=== PATIENT | female | born 1995 | race Caucasian/White ===

== ENCOUNTER 2017-03-15 17:56 | Emergency (ER) | payer SELFPAY ==
[~2017-03-15] VITALS: Ht 157.5 cm; Wt 40.6 kg
[~2017-03-15 17:56] MED LIST: BUSP15TA PO; ESCI10TA10 PO; HYDR-3240 PO; IBUP-1222 PO; POLY17PO5 PO; PREN1TAB52 PO
[2017-03-15 17:59] VITALS: BP 132/87
[2017-03-15 18:58] LABS: HEMATOCRIT 41.9 % (34.6-47.8); HEMOGLOBIN 14.4 g/dL (11.7-16.4); WHITE BLOOD COUNT 10.3 x10^3/uL (3.4-10)
[2017-03-15 19:08] LABS: BLOOD UREA NITROGEN 12 mg/dL (7-18)
[2017-03-15 19:14] LABS: ASPARTATE AMINO TRANSFERASE 17 U/L (15-37)
== END 2017-03-15 20:17 | disposition home or self-care (01) ==
LOC: ED 20:16
DX: N39.0 Urinary tract infection, site not specified (principal)
CPT/HCPCS: 36415; 76830; 80053; 81001; 84703; 85025; 87086; 99285

== ENCOUNTER 2018-02-15 18:22 | Emergency (ER) | payer OTHER ==
[~2018-02-15] VITALS: Ht 157.5 cm; Wt 45.0 kg
[2018-02-15 18:57] LABS: BASOPHILS # (AUTO) 0.04 x10^3/uL (0-0.1); BASOPHILS % (AUTO) 0 % (0-1); EOSINOPHILS # (AUTO) 0.12 x10^3/uL (0-0.4); EOSINOPHILS % (AUTO) 1 % (1-7); LYMPHOCYTES # (AUTO) 2.33 x10^3/uL (1-3.4); LYMPHOCYTES % (AUTO) 27 % (22-44); MD NO; MEAN CORPUSCULAR HEMOGLOBIN 33.4 pg (27.0-34.8); MEAN CORPUSCULAR VOLUME 95.6 fL (80-100); MONOCYTES # (AUTO) 0.51 x10^3/uL (0.2-0.8); MONOCYTES % (AUTO) 6 % (2-9); NEUTROPHILS # (AUTO) 5.77 x10^3/uL (1.8-6.8); NEUTROPHILS % (AUTO) 66 % (42-75); PLATELET COUNT 216 x10^3/uL (130-400); RED BLOOD COUNT 4.01 x10^6/uL (3.82-5.3); RED CELL DISTRIBUTION WIDTH 12.6 % (9.6-15.2)
[2018-02-15 19:06] LABS: ALANINE AMINOTRANSFERASE 21 U/L (12-78); ALBUMIN 3.7 g/dL (3.4-5.0); ANION GAP 8 mmol/L (5-15); CALCIUM 8.4 mg/dL (8.5-10.1); CHLORIDE 107 mmol/L (98-107); CREATININE 0.75 mg/dL (0.55-1.02)
[2018-02-15 19:11] LABS: ALKALINE PHOSPHATASE 69 U/L (45-117); BILIRUBIN,TOTAL 0.5 mg/dL (0.2-1.0); TOTAL PROTEIN 7.6 g/dL (6.4-8.2)
[2018-02-15 19:24] LABS: MICROSCOPIC INDICATED
[2018-02-15 19:25] LABS: CULTURE INDICATED? YES
[2018-02-15 20:52] VITALS: BP 113/39
== END 2018-02-15 21:26 | disposition home or self-care (01) ==
LOC: ED 20:51
DX: N30.00 Acute cystitis without hematuria (principal); R11.2 Nausea with vomiting, unspecified; F17.200 Nicotine dependence, unspecified, uncomplicated
CPT/HCPCS: 36415; 76830; 80053; 81001; 83690; 84703; 85025; 87086; 99285

== ENCOUNTER 2018-04-22 20:38 | Emergency (ER) | payer SELFPAY ==
[~2018-04-22] VITALS: Ht 157.5 cm; Wt 42.3 kg
[2018-04-22] MEDS ORDERED: PRAZ1POW3 PO (21:04)
[2018-04-22] MEDS ORDERED: BUSP5TAB2 PO (21:05)
[2018-04-22] MEDS ORDERED: ONDANSETRON ODT 4 MG ONE (21:17)
[2018-04-22] MEDS ORDERED: ONDANSETRON ODT 4 MG PO ONE (21:30)
[2018-04-22 21:31] LABS: BASOPHILS # (AUTO) 0.04 x10^3/uL (0-0.1); BASOPHILS % (AUTO) 1 % (0-1); EOSINOPHILS # (AUTO) 0.11 x10^3/uL (0-0.4); EOSINOPHILS % (AUTO) 1 % (1-7); LYMPHOCYTES # (AUTO) 2.39 x10^3/uL (1-3.4); LYMPHOCYTES % (AUTO) 30 % (22-44); MD NO; MEAN CORPUSCULAR HEMOGLOBIN 33.3 pg (27.0-34.8); MEAN CORPUSCULAR HGB CONC 34.6 g/dL (32.4-35.8); MEAN CORPUSCULAR VOLUME 96.3 fL (80-100); MEAN PLATELET VOLUME 7.9 fL (7.4-10.4); MONOCYTES # (AUTO) 0.41 x10^3/uL (0.2-0.8); MONOCYTES % (AUTO) 5 % (2-9); NEUTROPHILS # (AUTO) 4.93 x10^3/uL (1.8-6.8); NEUTROPHILS % (AUTO) 63 % (42-75); PLATELET COUNT 211 x10^3/uL (130-400); RED BLOOD COUNT 3.92 x10^6/uL (3.82-5.3); RED CELL DISTRIBUTION WIDTH 12.3 % (9.6-15.2)
[2018-04-22 21:44] LABS: ALANINE AMINOTRANSFERASE 23 U/L (12-78); ALBUMIN 3.8 g/dL (3.4-5.0); ANION GAP 6 mmol/L (5-15); CALCIUM 8.5 mg/dL (8.5-10.1); CHLORIDE 106 mmol/L (98-107); CREATININE 0.64 mg/dL (0.55-1.02)
[2018-04-22 21:46] LABS: ALKALINE PHOSPHATASE 58 U/L (45-117); BILIRUBIN,TOTAL 0.5 mg/dL (0.2-1.0); TOTAL PROTEIN 7.6 g/dL (6.4-8.2)
[2018-04-22 21:51] LABS: HCG UR SG 1.012 (1.003-1.030); MICROSCOPIC NOT IND
[2018-04-22 21:52] LABS: CULTURE INDICATED? NO
[2018-04-22 23:03] VITALS: BP 108/57
== END 2018-04-22 23:13 | disposition home or self-care (01) ==
LOC: ED 21:07
DX: R53.1 Weakness (principal); F41.1 Generalized anxiety disorder; R10.84 Generalized abdominal pain; F31.9 Bipolar disorder, unspecified
CPT/HCPCS: 36415; 80053; 81003; 81025; 83690; 85025; 93005; 99284; Q0162

== ENCOUNTER 2018-08-21 19:45 | Emergency (ER) | payer OTHER ==
[~2018-08-21] VITALS: Ht 160 cm; Wt 43.4 kg
[~2018-08-21 19:45] MED LIST changes: +BUSP5TAB2 PO; +PRAZ1POW3 PO
[2018-08-21 19:54] VITALS: BP 146/84
[2018-08-21 20:42] LABS: MICROSCOPIC NOT IND
[2018-08-21 20:43] LABS: BASOPHILS # (AUTO) 0.05 x10^3/uL (0-0.1); BASOPHILS % (AUTO) 0 % (0-1); EOSINOPHILS # (AUTO) 0.23 x10^3/uL (0-0.4); EOSINOPHILS % (AUTO) 2 % (1-7); LYMPHOCYTES # (AUTO) 2.36 x10^3/uL (1-3.4); LYMPHOCYTES % (AUTO) 22 % (22-44); MD NO; MEAN CORPUSCULAR HGB CONC 34.5 g/dL (32.4-35.8); MEAN CORPUSCULAR VOLUME 95.7 fL (80-100); MEAN PLATELET VOLUME 7.6 fL (7.4-10.4); MONOCYTES # (AUTO) 0.63 x10^3/uL (0.2-0.8); MONOCYTES % (AUTO) 6 % (2-9); NEUTROPHILS % (AUTO) 70 % (42-75); PLATELET COUNT 285 x10^3/uL (130-400); RED BLOOD COUNT 3.73 x10^6/uL (3.82-5.3); RED CELL DISTRIBUTION WIDTH 13.2 % (9.6-15.2)
[2018-08-21 20:46] LABS: CULTURE INDICATED? NO
--- NOTE | 2018-08-21 20:51 | NUR ---
IN XR THEN ROOM
[2018-08-21 20:54] LABS: ALANINE AMINOTRANSFERASE 18 U/L (12-78); ALBUMIN 3.5 g/dL (3.4-5.0); ANION GAP 5 mmol/L (5-15); CALCIUM 8.8 mg/dL (8.5-10.1); CHLORIDE 108 mmol/L (98-107); CREATININE 0.52 mg/dL (0.55-1.02)
[2018-08-21 20:59] LABS: ALKALINE PHOSPHATASE 74 U/L (45-117); BILIRUBIN,TOTAL 0.4 mg/dL (0.2-1.0); TOTAL PROTEIN 7.1 g/dL (6.4-8.2)
== END 2018-08-21 21:56 | disposition home or self-care (01) ==
LOC: ED 21:50
DX: R10.2 Pelvic and perineal pain (principal); F17.200 Nicotine dependence, unspecified, uncomplicated; F31.9 Bipolar disorder, unspecified
CPT/HCPCS: 36415; 76830; 80053; 81003; 84703; 85025; 99284

== ENCOUNTER 2019-11-06 08:50 | Emergency (ER) | payer SELFPAY ==
[~2019-11-06] VITALS: Ht 157.5 cm; Wt 47.4 kg
--- NOTE | 2019-11-06 09:30 | NUR ---
URINE COLLECTED AND SENT TO LAB.
[2019-11-06 09:41] LABS: BASOPHILS # (AUTO) 0.03 x10^3/uL (0-0.1); BASOPHILS % (AUTO) 0 % (0-1); EOSINOPHILS # (AUTO) 0.16 x10^3/uL (0-0.4); EOSINOPHILS % (AUTO) 2 % (1-7); LYMPHOCYTES # (AUTO) 2.16 x10^3/uL (1-3.4); LYMPHOCYTES % (AUTO) 22 % (22-44); MD NO; MEAN CORPUSCULAR HEMOGLOBIN 32.6 pg (27.0-34.8); MEAN CORPUSCULAR HGB CONC 33.8 g/dL (32.4-35.8); MEAN CORPUSCULAR VOLUME 96.3 fL (80-100); MEAN PLATELET VOLUME 7.6 fL (7.4-10.4); MONOCYTES # (AUTO) 0.64 x10^3/uL (0.2-0.8); MONOCYTES % (AUTO) 6 % (2-9); NEUTROPHILS # (AUTO) 7.08 x10^3/uL (1.8-6.8); NEUTROPHILS % (AUTO) 70 % (42-75); PLATELET COUNT 289 x10^3/uL (130-400); RED BLOOD COUNT 4.05 x10^6/uL (3.82-5.3); RED CELL DISTRIBUTION WIDTH 12.3 % (9.6-15.2)
[2019-11-06 09:53] LABS: ALANINE AMINOTRANSFERASE 20 U/L (12-78); ALBUMIN 3.9 g/dL (3.4-5.0); ANION GAP 7 mmol/L (5-15); CALCIUM 9.1 mg/dL (8.5-10.1); CHLORIDE 105 mmol/L (98-107); CREATININE 0.59 mg/dL (0.55-1.02)
[2019-11-06 09:54] LABS: MICROSCOPIC AUTO
[2019-11-06 10:12] LABS: ALKALINE PHOSPHATASE 64 U/L (45-117); BILIRUBIN,TOTAL 0.7 mg/dL (0.2-1.0); TOTAL PROTEIN 7.9 g/dL (6.4-8.2)
[2019-11-06 10:31] VITALS: BP 101/54
[2019-11-06] MEDS ORDERED: PREN1TAB28 PO (10:34)
--- NOTE | 2019-11-06 10:46 | NUR ---
VS UPDATED AND WNL. PBJ MADE AND SERVED TO PATIENT WITH MILK.
--- NOTE | 2019-11-06 11:16 | NUR ---
Patient given discharge instructions and they have confirmed that they understand the instructions. Patient ambulatory with steady gait.
== END 2019-11-06 11:17 | disposition home or self-care (01) ==
LOC: ED 10:54
DX: O20.0 Threatened abortion (principal); Z3A.01 Less than 8 weeks gestation of pregnancy
CPT/HCPCS: 36415; 76801; 80053; 81001; 84702; 85025; 86901; 87086; 99284

== ENCOUNTER 2019-11-08 10:22 | Emergency (ER) | payer OTHER ==
[~2019-11-08] VITALS: Ht 157.5 cm; Wt 47.0 kg
[~2019-11-08 10:22] MED LIST changes: +PREN1TAB28 PO
--- NOTE | 2019-11-08 10:52 | NUR ---
LAB IN ROOM.
--- NOTE | 2019-11-08 10:56 | NUR ---
THIS IS A 24 YO F THAT IS HERE TO "CONFIRM STATUS". PT REPORTS SHE WAS HERE 2 DAYS AGO W/ C/O CRAMPING AND WAS TOLD TO COME BACK AND GET HCG AND POSSIBLE US TODAY. PT DENIES ABD PAIN/VB/N/V. PT RESTING ON GURNEY W/ CALL LIGHT IN REACH AND FAMILY AT BEDSIDE. KAYODE BARILLAS. AWAITING LAB RESULTS.
--- NOTE | 2019-11-08 11:50 | NUR ---
PT TO US.
--- NOTE | 2019-11-08 12:27 | NUR ---
PER PT IS OKAY TO EAT.
[2019-11-08 12:30] VITALS: BP 103/59
--- NOTE | 2019-11-08 12:46 | NUR ---
REGULAR DIET TRAY DELIVERED TO PT.
--- NOTE | 2019-11-08 12:59 | NUR ---
PT RESTING ON GURNEY W/ CALL LIGHT IN REACH AND FAMILY AT BEDSIDE. AWAITING OB CONSULT.
--- NOTE | 2019-11-08 13:33 | NUR ---
Patient given discharge instructions and they have confirmed that they understand the instructions. Patient ambulatory with steady gait.
== END 2019-11-08 13:35 | disposition home or self-care (01) ==
LOC: ED 11:03
DX: O26.91 Pregnancy related conditions, unspecified, first trimester (principal); R10.2 Pelvic and perineal pain; Z3A.01 Less than 8 weeks gestation of pregnancy
CPT/HCPCS: 36415; 76801; 84702; 99284

== ENCOUNTER 2019-11-20 08:00 | Emergency (ER) | payer OTHER ==
[~2019-11-20] VITALS: Ht 157.5 cm; Wt 48.3 kg
--- NOTE | 2019-11-20 08:20 | NUR ---
Pt ambulates with steady gait and balance from triage to room. No acute distress noticed.
[2019-11-20] MEDS ORDERED: Ibuprofen (08:35)
--- NOTE | 2019-11-20 08:35 | NUR ---
Pt resting on gurney connected to NIBP cuff and continous pulse ox monitor. Pt reports history of chronic bowel problems since "potty trained" with constipation and past use of "Denisa every other day for bowel maintenance". Pt reports "normal" bowel movements for two years with current constipation "related to being , I had this in my last ". Pt reports last bowel movement "2 weeks ago" and a 4/10 periumbillical pain. Call light within reach. No needs expressed at this time.
[2019-11-20 09:03] VITALS: BP 109/61
--- NOTE | 2019-11-20 09:17 | NUR ---
Patient given discharge instructions and they have confirmed that they understand the instructions. Patient ambulatory with steady gait. Pt left with Rx, discharge instructions, and all personal belongings.
== END 2019-11-20 09:19 | disposition home or self-care (01) ==
LOC: ED 08:40
DX: K59.00 Constipation, unspecified (principal); Z76.0 Encounter for issue of repeat prescription
CPT/HCPCS: 99281

== ENCOUNTER 2020-05-20 11:49 | Outpatient (CLI) | payer MEDICAID ==
[~2020-05-20 11:49] MED LIST changes: +ACET-1600 PO; +Ibuprofen; +LINA290C PO; +ONDA4TAB7 PO
[2020-05-20 12:47] LABS: MICROSCOPIC INDICATED
[2020-05-20 12:55] LABS: AMPHETAMINE SCREEN, URINE Negative (Negative); BARBITURATE SCREEN, URINE Negative (Negative); BENZODIAZEPINE SCREEN, URINE Negative (Negative); CANNABINOID SCREEN, URINE Negative (Negative); COCAINE SCREEN, URINE Negative (Negative); METHADONE SCREEN, URINE Negative (Negative); OPIATE SCREEN, URINE Negative (Negative)
[2020-05-20] MEDS ORDERED: NITR100C56 PO (13:03)
== END 2020-05-20 13:10 | disposition home or self-care (01) ==
LOC: LDOP 11:49
PROVIDERS: ATTEND Obstetrics & Gynecology
DX: O36.8130 Decreased fetal movements, third trimester, not applicable or unspecified (principal); O46.93 Antepartum hemorrhage, unspecified, third trimester; Z3A.32 32 weeks gestation of pregnancy
CPT/HCPCS: 59025; 80307; 81001; 87086

== ENCOUNTER 2020-06-07 10:58 | Outpatient (CLI) | payer MEDICAID ==
[~2020-06-07] VITALS: Ht 157.5 cm; Wt 68.6 kg
[~2020-06-07 10:58] MED LIST changes: +NITR100C56 PO
[2020-06-07 11:54] VITALS: BP 127/75
[2020-06-07] MEDS ORDERED: [UNRECOGNIZED DRUG - CODE] PO/NG (12:06)
== END 2020-06-07 12:45 | disposition home or self-care (01) ==
LOC: LDOP 10:58
PROVIDERS: ATTEND Obstetrics & Gynecology
DX: O36.8130 Decreased fetal movements, third trimester, not applicable or unspecified (principal); Z3A.35 35 weeks gestation of pregnancy
CPT/HCPCS: 59025

== ENCOUNTER 2020-07-02 04:53 | Inpatient (IN) | payer MEDICAID ==
[~2020-07-02] VITALS: Ht 157.5 cm; Wt 70.0 kg
[~2020-07-02 04:53] MED LIST changes: +HYDR-1067 PO; -HYDR-3240 PO; +[UNRECOGNIZED DRUG - CODE] PO/NG
[2020-07-02] MEDS ORDERED: OXYTOCIN 30U/ 0.9% NaCL 500ML 500 ML ONE (05:10)
[2020-07-02] MEDS ORDERED: LIDOCAINE 1%, 20ML ONE (05:10)
[2020-07-02] MEDS ORDERED: NEWBORN KIT ONE (05:10)
[2020-07-02] MEDS ORDERED: MISOPROSTOL 200 MCG TABLET ONE (05:11)
[2020-07-02 05:17] VITALS: BP 117/67
[2020-07-02] MEDS ORDERED: CALCIUM CARBONATE 500 MG TAB.CHEW PO PRN (05:30)
[2020-07-02] MEDS: D5%-LACTATED RINGERS 1,000 ML IV SCH ×3 (05:30→21:30)
[2020-07-02] MEDS ORDERED: ONDANSETRON 2MG/ML, 2ML IVPush PRN ×2 (05:30→15:30)
[2020-07-02] MEDS ORDERED: FENTANYL PF 100 MCG/2ML IVPush PRN (05:30)
[2020-07-02] MEDS ORDERED: OXYTOCIN 30U/ 0.9% NaCL 500ML 500 ML IV ONE (05:30)
[2020-07-02] MEDS ORDERED: FENTANYL PF 100 MCG/2ML IV PRN (05:30)
[2020-07-02] MEDS ORDERED: TERBUTALINE 1 MG/ML, 1ML IVPush PRN (05:30)
[2020-07-02] MEDS ORDERED: TERBUTALINE 1 MG/ML, 1ML SQ PRN (05:30)
[2020-07-02] MEDS: LACTATED RINGERS 1,000 ML IV SCH ×6 (05:49→23:30)
[2020-07-02 05:55] LABS: AMPHETAMINE SCREEN, URINE Negative (Negative); BARBITURATE SCREEN, URINE Negative (Negative); BENZODIAZEPINE SCREEN, URINE Negative (Negative); CANNABINOID SCREEN, URINE Negative (Negative); COCAINE SCREEN, URINE Negative (Negative); METHADONE SCREEN, URINE Negative (Negative); OPIATE SCREEN, URINE Negative (Negative)
[2020-07-02 05:56] LABS: BASOPHILS % (AUTO) 0 % (0-1); EOSINOPHILS % (AUTO) 3 % (1-7); LYMPHOCYTES % (AUTO) 23 % (22-44); MEAN CORPUSCULAR HEMOGLOBIN 32.8 pg (27.0-34.8); MEAN CORPUSCULAR HGB CONC 34.4 g/dL (32.4-35.8); MEAN PLATELET VOLUME 8.2 fL (7.4-10.4); MONOCYTES % (AUTO) 10 % (2-9); NEUTROPHILS % (AUTO) 65 % (42-75); PLATELET COUNT 309 x10^3/uL (130-400); RED BLOOD COUNT 3.71 x10^6/uL (3.82-5.3); RED CELL DISTRIBUTION WIDTH 12.7 % (9.6-15.2)
[2020-07-02] MEDS: PLEASE ENTER HEIGHT AND WEIGHT MC SCH ×3 (06:00→22:00)
[2020-07-02 06:05] LABS: MD NO
[2020-07-02] MEDS ORDERED: OXYTOCIN 30U/ 0.9% NaCL 500ML 500 ML IV PRN (06:30)
[2020-07-02] MEDS: NICOTINE 21 MG/24 HR PATCH.TD24 TD SCH (08:59)
[2020-07-02] MEDS ORDERED: FENTANYL/BUPIV./NS/PF 250 ML EPIDCONT ONE (13:38)
[2020-07-02] MEDS ORDERED: BUPIVACAINE 0.25% ONE (13:38)
[2020-07-02] MEDS ORDERED: DIPHENHYDRAMINE 50 MG/ML, 1ML IVPush PRN (15:30)
[2020-07-02] MEDS ORDERED: EPHEDRINE 50 MG/ML, 1ML IVPush PRN (15:30)
[2020-07-02] MEDS ORDERED: NALOXONE 0.4 MG/ML, 1ML IVPush PRN (15:30)
[2020-07-02] MEDS ORDERED: FENTANYL/BUPIV./NS/PF 250 ML EPIDCONT SCH (15:30)
[2020-07-02] MEDS ORDERED: LACTATED RINGERS 1,000 ML IVBOLUS PRN (15:30)
[2020-07-03] MEDS ORDERED: BISACODYL 10 MG SUPP PR PRN (00:30)
[2020-07-03] MEDS ORDERED: HYDROcodone/APAP 5/325 TABLET PO PRN (00:30)
[2020-07-03] MEDS ORDERED: MISOPROSTOL 200 MCG TABLET PR PRN (00:30)
[2020-07-03] MEDS ORDERED: ONDANSETRON 2MG/ML, 2ML IV PRN (00:30)
[2020-07-03] MEDS: OXYTOCIN 30U/ 0.9% NaCL 500ML 500 ML IV SCH ×2 (00:30→10:30)
[2020-07-03] MEDS ORDERED: SIMETHICONE 80 MG CHEW TAB PO PRN (00:30)
[2020-07-03] MEDS ORDERED: METHYLERGONOVINE 0.2 MG/ML IM PRN (00:30)
[2020-07-03] MEDS ORDERED: GLYCERIN ADULT SUPP PR PRN (00:30)
[2020-07-03] MEDS ORDERED: OXYTOCIN 30U/ 0.9% NaCL 500ML 500 ML ONE (02:00)
[2020-07-03 02:48] VITALS: BP 110/70
[2020-07-03] MEDS: IBUPROFEN 600 MG TABLET PO PRN ×3 (03:01→18:18)
[2020-07-03] MEDS: HYDROcodone/APAP 5/325 TABLET PO PRN ×5 (03:01→22:26)
[2020-07-03] MEDS: D5%-LACTATED RINGERS 1,000 ML IV SCH ×2 (05:30→13:30)
[2020-07-03] MEDS: LACTATED RINGERS 1,000 ML IV SCH ×2 (05:47→13:30)
[2020-07-03] MEDS: PLEASE ENTER HEIGHT AND WEIGHT MC SCH ×2 (05:47→14:00)
[2020-07-03] MEDS: NICOTINE 21 MG/24 HR PATCH.TD24 TD SCH (08:13)
[2020-07-03] MEDS: PRENATAL VIT/IRON/FA 1 EACH TABLET PO SCH (08:13)
[2020-07-03] MEDS: DOCUSATE 100 MG CAPSULE PO PRN ×2 (08:13→22:26)
[2020-07-03 08:15] VITALS: BP 96/62
[2020-07-03 13:35] VITALS: BP 111/71
[2020-07-03 17:45] VITALS: BP 115/75
[2020-07-03 20:00] VITALS: BP 120/77
[2020-07-04] MEDS: IBUPROFEN 600 MG TABLET PO PRN ×2 (00:39→06:50)
[2020-07-04] MEDS: PRENATAL VIT/IRON/FA 1 EACH TABLET PO SCH (06:50)
[2020-07-04] MEDS: DOCUSATE 100 MG CAPSULE PO PRN (06:50)
[2020-07-04] MEDS: HYDROcodone/APAP 5/325 TABLET PO PRN ×2 (06:52→11:45)
[2020-07-04 07:11] VITALS: BP 94/62
[2020-07-04] MEDS: NICOTINE 21 MG/24 HR PATCH.TD24 TD SCH (09:00)
[2020-07-04] MEDS ORDERED: DIPH,PERTUSS(ACELL),TET VAC/PF NC IM-VACC ONE ×2 (13:12→13:30)
== END 2020-07-04 13:59 | disposition home or self-care (01) | DRG 806 ==
LOC: LDIP 04:53 → 2NW 07-03 02:16
PROVIDERS: ADMIT Obstetrics & Gynecology; ATTEND Obstetrics & Gynecology
PROC: 10E0XZZ Delivery of Products of Conception, External Approach (ICD-10-PCS; principal; 2020-07-02)
PROC: 0HQ9XZZ Repair Perineum Skin, External Approach (ICD-10-PCS; 2020-07-02)
PROC: 10907ZC Drainage of Amniotic Fluid, Therapeutic from Products of Conception, Via Natural or Artificial Opening (ICD-10-PCS; 2020-07-02)
PROC: 3E0R3BZ Introduction of Anesthetic Agent into Spinal Canal, Percutaneous Approach (ICD-10-PCS; 2020-07-02)
PROC: 00HU33Z Insertion of Infusion Device into Spinal Canal, Percutaneous Approach (ICD-10-PCS; 2020-07-02)
DX: O99.62 Diseases of the digestive system complicating childbirth (principal); K59.39 Other megacolon; Z37.0 Single live birth; Z3A.39 39 weeks gestation of pregnancy; Z20.822 Contact with and (suspected) exposure to COVID-19; Z23 Encounter for immunization
CPT/HCPCS: 36415; 80307; 85025; 86592; 86850; 86900; 87635; 90715; G0378; J2590; J3010; J7120

== ENCOUNTER 2020-07-05 19:48 | Emergency (ER) | payer MEDICAID ==
[~2020-07-05] VITALS: Ht 157.5 cm; Wt 66.8 kg
--- NOTE | 2020-07-05 20:10 | NUR ---
PT REPORTS SHE HAS TOXIC MEGACOLON. REPORTS SHE FOUND STOOL AROUND HER VAGINAL OPENING AND AROUND HER SUTURES (HAD TEAR FROM VAGINAL 07/02/20) WHEN SHE WIPED. CONCERNED SHE MAY HAVE AN INFECTION. ANXIOUS AND TEARFUL. BLANKETS PROVIDED. EMOTIONAL SUPPORT PROVIDED. SIGNIFICANT OTHER AT BS.
--- NOTE | 2020-07-05 20:15 | NUR ---
ER PA WAS IN TO SEE PT.
[2020-07-05] MEDS ORDERED: ONDANSETRON 2MG/ML, 2ML IVPush ONE (20:30)
[2020-07-05] MEDS ORDERED: SODIUM CHLORIDE FLUSH 10ML SYR IVF ONE (20:30)
[2020-07-05] MEDS ORDERED: MORPHINE SULFATE 4 MG/ML, 1ML ONE ×2 (20:51→22:36)
[2020-07-05] MEDS ORDERED: ONDANSETRON 2MG/ML, 2ML ONE (20:51)
[2020-07-05 21:00] LABS: BASOPHILS % (AUTO) 1 % (0-1); EOSINOPHILS % (AUTO) 3 % (1-7); LYMPHOCYTES % (AUTO) 17 % (22-44); MD NO; MEAN CORPUSCULAR HEMOGLOBIN 33.5 pg (27.0-34.8); MEAN CORPUSCULAR HGB CONC 34.8 g/dL (32.4-35.8); MEAN PLATELET VOLUME 7.3 fL (7.4-10.4); MONOCYTES % (AUTO) 6 % (2-9); NEUTROPHILS % (AUTO) 74 % (42-75); PLATELET COUNT 317 x10^3/uL (130-400); RED BLOOD COUNT 3.49 x10^6/uL (3.82-5.3); RED CELL DISTRIBUTION WIDTH 12.7 % (9.6-15.2)
[2020-07-05] MEDS: MORPHINE SULFATE 4 MG/ML, 1ML IVPush PRN ×2 (21:06→22:38)
[2020-07-05 21:08] LABS: ALANINE AMINOTRANSFERASE 31 U/L (12-78); ALBUMIN 2.6 g/dL (3.4-5.0); ANION GAP 7 mmol/L (5-15); CALCIUM 8.8 mg/dL (8.5-10.1); CHLORIDE 107 mmol/L (98-107); CREATININE 0.51 mg/dL (0.55-1.02)
[2020-07-05 21:11] LABS: ALKALINE PHOSPHATASE 151 U/L (45-117); BILIRUBIN,TOTAL 0.3 mg/dL (0.2-1.0); TOTAL PROTEIN 7.2 g/dL (6.4-8.2)
--- NOTE | 2020-07-05 21:42 | NUR ---
PT TO US VIA [facility].
[2020-07-05 22:39] LABS: MICROSCOPIC INDICATED
[2020-07-05] MEDS ORDERED: ACETAMINOPHEN 500 MG TABLET ONE (22:58)
[2020-07-05] MEDS ORDERED: LORazepam 2 MG/ML, 1ML IVPush ONE (23:00)
[2020-07-05] MEDS ORDERED: ACETAMINOPHEN 500 MG TABLET PO ONE (23:00)
[2020-07-05] MEDS ORDERED: CLINDAMYCIN PMX 600MG/50ML 50 ML IV ONE (23:00)
--- NOTE | 2020-07-05 23:02 | NUR ---
PT MEDICATED FOR TYLENOL FOR FEVER. (MOST RECENT TEMP DOWN TO 99.4F.) ER PA AT BS NOW FOR PELVIC EXAM. PER ER PA & ERP, HOLD OFF ON CLINDAMYCIN FOR NOW UNTIL PELVIC EXAM DONE.
[2020-07-05] MEDS ORDERED: LORazepam 2 MG/ML, 1ML ONE (23:04)
--- NOTE | 2020-07-05 23:05 | NUR ---
PT UNABLE TO TOLERATE PELVIC EXAM, ANXIOUS AND CRYING. MEDICATED WITH ATIVAN PER ORDERS. ER PA WILL COME BACK TO DO PELVIC EXAM.
--- NOTE | 2020-07-05 23:40 | NUR ---
NEW UNDERWEAR & PAD PROVIDED TO PT. UPDATED PT ON POC.
--- NOTE | 2020-07-05 23:45 | NUR ---
Michelle perez in [facility] - 07/06/20 at 0029 by NU REPORTED TO PAMELA CREWS
[2020-07-06] MEDS ORDERED: CLINDAMYCIN 300 MG CAPSULE PO ONE
[2020-07-06] MEDS ORDERED: CLINDAMYCIN 300 MG CAPSULE ONE (00:20)
[2020-07-06] MEDS ORDERED: HYDROcodone/APAP 5/325 TABLET ONE (00:20)
[2020-07-06 00:26] VITALS: BP 97/68
[2020-07-06] MEDS ORDERED: HYDROcodone/APAP 5/325 TABLET PO ONE (00:30)
--- NOTE | 2020-07-06 00:30 | NUR ---
ERP WAS IN FOR RECHECK. PT MEDICATED WITH [facility] FOR PELVIC/VAGINAL PAIN SINCE UNABLE TO MORTGAGE SPECIALIST RX FOR [facility] TONIGHT. D/C INSTRUCTIONS, MEDS & F/U APPT RV'WD WITH PT, SHE VERBALIZES UNDERSTANDING. RX GIVEN X2; [facility] RX SENT ELECTRONICALLY TO [facility]. INSTRUCTED PT TO RETURN FOR FEVER, INCREASED PAIN, OR OTHER CONCERNS. PT AMBULATED OUT OF ED WITH SIGNIFICANT OTHER WITHOUT DIFFICULTY.
== END 2020-07-06 00:30 | disposition home or self-care (01) ==
LOC: ED 21:00
DX: N93.8 Other specified abnormal uterine and vaginal bleeding (principal); L76.82 Other postprocedural complications of skin and subcutaneous tissue; R10.84 Generalized abdominal pain; K50.90 Crohn's disease, unspecified, without complications
CPT/HCPCS: 36415; 76856; 80053; 81001; 85025; 87086; 96374; 96375; 96376; 99284; J2060; J2270; J2405

== ENCOUNTER 2020-10-12 07:43 | Emergency (ER) | payer MEDICAID ==
[~2020-10-12] VITALS: Ht 157.5 cm; Wt 63.5 kg
[~2020-10-12 07:43] MED LIST changes: -HYDR-1067 PO; +HYDR-2214 PO
[2020-10-12] MEDS ORDERED: ONDANSETRON 2MG/ML, 2ML IVPush ONE (08:30)
[2020-10-12] MEDS ORDERED: SODIUM CHLORIDE FLUSH 10ML SYR IVF ONE (08:30)
[2020-10-12] MEDS ORDERED: MORPHINE SULFATE 4 MG/ML, 1ML IVPush PRN (08:30)
[2020-10-12] MEDS ORDERED: MORPHINE SULFATE 4 MG/ML, 1ML ONE (08:35)
[2020-10-12] MEDS ORDERED: ONDANSETRON 2MG/ML, 2ML ONE (08:35)
[2020-10-12 08:39] LABS: ALANINE AMINOTRANSFERASE 33 U/L (12-78); ALBUMIN 3.8 g/dL (3.4-5.0); ANION GAP 5 mmol/L (5-15); CALCIUM 8.9 mg/dL (8.5-10.1); CHLORIDE 110 mmol/L (98-107); CREATININE 0.59 mg/dL (0.55-1.02)
[2020-10-12 08:40] LABS: BASOPHILS % (AUTO) 1 % (0-1); EOSINOPHILS % (AUTO) 6 % (1-7); LYMPHOCYTES % (AUTO) 28 % (22-44); MEAN CORPUSCULAR HEMOGLOBIN 32.7 pg (27.0-34.8); MEAN CORPUSCULAR HGB CONC 34.9 g/dL (32.4-35.8); MEAN PLATELET VOLUME 7.6 fL (7.4-10.4); MONOCYTES % (AUTO) 7 % (2-9); NEUTROPHILS % (AUTO) 59 % (42-75); PLATELET COUNT 379 x10^3/uL (130-400); RED BLOOD COUNT 4.25 x10^6/uL (3.82-5.3); RED CELL DISTRIBUTION WIDTH 13.2 % (9.6-15.2)
[2020-10-12 08:41] LABS: MD NO
[2020-10-12 08:42] LABS: ALKALINE PHOSPHATASE 122 U/L (45-117); BILIRUBIN,TOTAL 0.6 mg/dL (0.2-1.0); TOTAL PROTEIN 7.8 g/dL (6.4-8.2)
[2020-10-12] MEDS ORDERED: OMNIPAQUE 350 MG/ML, 100ML BOTTLE ONE (09:13)
--- NOTE | 2020-10-12 09:20 | NUR ---
PT MEDICATED FOR PAIN AND NAUSEA PER EMAR.
[2020-10-12 09:39] LABS: MICROSCOPIC INDICATED
[2020-10-12] MEDS ORDERED: L.E.T SOLUTION TP ONE ×2 (09:56→10:00)
[2020-10-12] MEDS ORDERED: AMPICILLIN/SULBACTAM 3 GM in SODIUM CHLORIDE 0.9% 100 ML IV ONE (10:00)
[2020-10-12] MEDS ORDERED: PINK LADY ENEMA 490 ML BOTTLE PR ONE (10:00)
[2020-10-12 11:42] VITALS: BP 109/69
== END 2020-10-12 11:44 | disposition home or self-care (01) ==
LOC: ED 08:52
DX: L02.211 Cutaneous abscess of abdominal wall (principal); K59.00 Constipation, unspecified; R10.33 Periumbilical pain
CPT/HCPCS: 10060; 36415; 74177; 80053; 81001; 85025; 87086; 96365; 96366; 96375; 99285; J0295; J2270; J2405; Q9967